=== PATIENT | female | born 1995 | race Caucasian/White ===

== ENCOUNTER 2020-08-26 13:23 | Outpatient (REF) | payer BC, SELFPAY ==
[2020-08-27 13:26] LABS: CT PCR NOT DETECTED (Not Detect.); NG PCR NOT DETECTED (Not Detect.)
[2020-08-27 13:28] LABS: BV Int Neg Control Negative (Negative); BV Int Pos Control Positive (Positive)
== END 2020-08-26 13:24 | disposition home or self-care (01) ==
LOC: HO.LAB 13:23
PROVIDERS: Visit Provider Advanced Practice Midwife
DX: Z01.419 Encounter for gynecological examination (general) (routine) without abnormal findings (principal); Z20.2 Contact with and (suspected) exposure to infections with a predominantly sexual mode of transmission
CPT/HCPCS: 87480; 87491; 87510; 87591; 87660; 88142